=== PATIENT | male | born 1995 | race Caucasian/White ===

== ENCOUNTER 2017-02-06 13:38 | Observation (INO) | payer BC ==
[2017-02-06] MEDS ORDERED: Zofran 4 MG/2 ML VIAL IV ONE ×2 (14:09→15:31)
[2017-02-06] MEDS ORDERED: Hydromorphone 1 mg/ml Ampule IV ONE (14:09)
[2017-02-06] MEDS ORDERED: Sodium Chloride 0.9% 1000 ML 1,000 ML IV SCH (14:15)
[2017-02-06 14:17] LABS: BASOPHIL % 0.1 % (0.0-0.4); Eosinophil % 0.2 % (0.00-5.0); Granulocytes % 86.1 % (36.0-66.0); Lymphocytes % 7.8 % (24.0-44.0); Mean Cell Volume 90.5 fl (78-100); Mean Corpuscular Hemoglobin 30.2 pg (26-32); Mean Platelet Volume 10.4 fl (6-9.5); Monocytes % 5.8 % (0.0-12.0); Platelet Count 276 K/mm3 (150-450); Red Blood Count 4.86 M/mm3 (4.1-5.6); Red Cell Distribution Width 12.9 % (11.5-14.0)
[2017-02-06 14:24] LABS: ALBUMIN 4.1 g/dL (3.4-5.0); ALKALINE PHOSPHATASE 80 U/L (46-116); ANION GAP 12.6 MEQ/L (5-15); BLOOD UREA NITROGEN 16 mg/dL (9-20); CHLORIDE 106 mEq/L (98-107); Carbon Dioxide 26.3 mEq/L (21-32); Glucose 103 MG/DL (70-110); LIPASE 116 U/L (73-393); Potassium 4.4 mEq/L (3.5-5.1); SGOT/AST 17 U/L (15-37); SGPT/ALT 28 U/L (12-78); SODIUM 141 mEq/L (136-145); Total Protein 7.7 gm/dL (6.4-8.2)
[2017-02-06] MEDS ORDERED: Zofran 4 MG/2 ML VIAL ONE (14:31)
[2017-02-06] MEDS ORDERED: Hydromorphone 1 mg/ml Ampule ONE (14:31)
--- NOTE | 2017-02-06 14:32 | ERPHSYRPT ---
- History of Present Illness Time Seen by Provider: 02/06/17 13:48 Historian: patient, family Exam Limitations: no limitations Patient Subjective Stated Complaint: pt co bloating and feeling full since last night, with some nausea Triage Nursing Assessment: pt walked in, alert, no distress, resp easy, skin w/d Physician History: patient developed abdominal pain this morning associated with nausea and vomiting; now has moved to the right lower quadrant; no fever; bowels moving okay; urinating okay; no prior history; loss of appetite Timing/Duration: today, hour(s) (8), gradual onset, worse (now) Activities at Onset: rest Quality: fullness, sharpness Abdominal Pain Onset Location: RLQ Pain Radiation: no radiation Severity of Pain-Max: severe (8/10) Severity of Pain-Current: severe (8/10) Modifying Factors: Improves With: coughing (exacerbates), palpation, vomiting Associated Symptoms: loss of appetite, nausea, vomiting Allergies/Adverse Reactions: No Known Drug Allergies Allergy (Unverified 02/06/17 13:50) Home Medications: No Reportable Medications [No Reported Medications] 02/06/17 [History] Hx Influenza Vaccination/Date Given: No Hx Pneumococcal Vaccination/Date Given: No Immunizations Up to Date: Yes - Review of Systems Constitutional: No Symptoms Eyes: No Symptoms Ears, Nose, & Throat: No Symptoms Respiratory: No Cough, No Dyspnea, No Wheezing Cardiac: No Chest Pain, No Palpitations, No Syncope Abdominal/Gastrointestinal: Abdominal Pain (right lower quadrant), Nausea, Vomiting, Appetite Changes, No Diarrhea, No Constipation Genitourinary Symptoms: No Symptoms Musculoskeletal: No Symptoms Skin: No Symptoms Neurological: No Symptoms Psychological: No Symptoms Endocrine: No Symptoms Hematologic/Lymphatic: No Symptoms Immunological/Allergic: No Symptoms - Past Medical History Pertinent Past Medical History: No - Past Surgical History Past Surgical History: No - Social History Smoking Status: Never smoker Exposure to second hand smoke: No Alcohol Use: Socially Drug Use: none Patient Lives Alone: No Significant Family History: no pertinent family hx - Nursing Vital Signs Nursing Vital Signs: Initial Vital Signs Temperature 97.4 F 02/06/17 13:46 Pulse Rate 60 02/06/17 13:46 Respiratory Rate 16 02/06/17 13:46 Blood Pressure 135/69 02/06/17 13:46 O2 Sat by Pulse Oximetry 100 02/06/17 13:46 Pain Scale Pain Intensity 2 - Physical Exam General Appearance: severe distress (pain and vomiting), alert, obese Eye Exam: PERRL/EOMI, eyes nml inspection, No photophobia Ears, Nose, Throat Exam: normal ENT inspection, TMs normal, pharynx normal, moist mucous membranes Neck Exam: normal inspection, non-tender, supple, full range of motion, No meningismus Respiratory Exam: normal breath sounds, lungs clear, airway intact, No chest tenderness, No respiratory distress Cardiovascular Exam: regular rate/rhythm, normal heart sounds, normal peripheral pulses, capillary refill 2-3 sec, No murmur Gastrointestinal/Abdomen Exam: soft, tenderness (right lower quadrant; left lower quadrant referred to right lower quadrant), guarding, rebound, No normal bowel sounds (present but hypoactive), No hernia, No organomegaly Male Genitalia Exam: normal genitalia Rectal Exam: deferred Back Exam: normal inspection, normal range of motion, No CVA tenderness Extremity Exam: normal inspection, normal range of motion, No alexus's sign, No pedal edema Neurologic Exam: alert, oriented x 3, cooperative, manager nursing II-XII nml as tested, normal mood/affect, nml cerebellar function, nml station & gait Skin Exam: normal color, warm, diaphoresis, No rash, No petechiae SpO2 Interpretation: normal SpO2: 100 Oxygen Delivery: Room Air - Course Nursing assessment & vital signs reviewed: Yes - CT Exams Abdomen/Pelvis CT Interpretation: Discussed w/radiologist, appendicitis Ordered Tests: Active Orders 24 hr Category Date Time Status Bedrest with BRP/BSC ROUTINE Activity 02/06/17 15:07 Ordered Admission/Status Order ROUTINE Care 02/06/17 15:06 Ordered Call Admit Doctor for Orders ON ADMISSION Care 02/06/17 15:07 Ordered Code Status Order ROUTINE Care 02/06/17 15:06 Ordered Fall Protocol ROUTINE Care 02/06/17 15:07 Ordered IV Care Q6H Care 02/06/17 15:06 Ordered IV Insertion STAT Care 02/06/17 14:09 Active NPO (ED) STAT Care 02/06/17 14:09 Active Re-Check Vital Signs STAT Care 02/06/17 14:09 Active Ancelmo Bailey, Apply ROUTINE Care 02/06/17 15:06 Ordered Weight,Daily 0600 Care 02/06/17 15:06 Ordered NPO Diet 02/06/17 15:07 Ordered ABDOMEN AND PELVIS W/0 CONTRAS [CT] Stat Exams 02/06/17 14:09 Completed AMYLASE Stat Lab 02/06/17 13:56 Completed CBC W DIFF Stat Lab 02/06/17 13:56 Completed CMP Stat Lab 02/06/17 13:56 Completed LIPASE Stat Lab 02/06/17 13:56 Completed UA W/RFX UR CULTURE Stat Lab 02/06/17 14:09 Ordered Transfer Order Routine Transfer 02/06/17 Ordered Medication Summary Generic Name Dose Route Start Last Admin Trade Name Freq PRN Reason Stop Dose Admin Sodium Chloride 1,000 mls @ 100 mls/hr 02/06/17 14:15 02/06/17 14:35 Sodium Chloride 0.9% 1000 Ml IV 03/08/17 14:14 100 mls/hr .Q10H CJ Administration Cefoxitin Sodium 1 g in 50 mls @ 100 mls/hr 02/06/17 15:04 Mefoxin 1 Gm/ D5w 50 Ml IV 02/06/17 15:33 STAT STA Discontinued Medications Generic Name Dose Route Start Last Admin Trade Name Freq PRN Reason Stop Dose Admin Hydromorphone HCl 2 mg 02/06/17 14:09 02/06/17 14:36 Hydromorphone 1 Mg/Ml Ampule IV 02/06/17 14:10 2 mg STAT ONE Administration Hydromorphone HCl Confirm 02/06/17 14:31 Hydromorphone 1 Mg/Ml Ampule Administered 02/06/17 14:32 Dose 2 mg .ROUTE .STK-MED ONE Ondansetron HCl 4 mg 02/06/17 14:09 02/06/17 14:36 Zofran 4 Mg/2 Ml Vial IV 02/06/17 14:10 4 mg STAT ONE Administration Ondansetron HCl Confirm 02/06/17 14:31 Zofran 4 Mg/2 Ml Vial Administered 02/06/17 14:32 Dose 4 mg .ROUTE .STK-MED ONE Lab/Rad Data: Laboratory Result Diagrams 02/06/17 13:56 02/06/17 13:56 Laboratory Results 02/06/17 02/06/17 Range/Units 13:56 13:56 WBC 14.0 H (4.0-10.5) K/mm3 RBC 4.86 (4.1-5.6) M/mm3 Hgb 14.7 (12.5-18.0) gm/dl Hct 44.0 (42-50) % MCV 90.5 (78-100) fl MCH 30.2 (26-32) pg MCHC 33.4 (32-36) g/dl RDW 12.9 (11.5-14.0) % Plt Count 276 (150-450) K/mm3 MPV 10.4 H (6-9.5) fl Gran % 86.1 H (36.0-66.0) % Lymphocytes % 7.8 L (24.0-44.0) % Monocytes % 5.8 (0.0-12.0) % Eosinophils % 0.2 (0.00-5.0) % Basophils % 0.1 (0.0-0.4) % Basophils # 0.02 (0-0.4) Sodium 141 (136-145) mEq/L Potassium 4.4 (3.5-5.1) mEq/L Chloride 106 (98-107) mEq/L Carbon Dioxide 26.3 (21-32) mEq/L Anion Gap 12.6 (5-15) MEQ/L BUN 16 (9-20) mg/dL Creatinine 1.11 (0.55-1.30) mg/dl Estimated GFR > 60 ML/MIN Glucose 103 (70-110) MG/DL Calcium 9.1 (8.5-10.1) mg/dL Total Bilirubin 0.40 (0.2-1.0) mg/dL AST 17 (15-37) U/L ALT 28 (12-78) U/L Alkaline Phosphatase 80 (46-116) U/L Serum Total Protein 7.7 (6.4-8.2) gm/dL Albumin 4.1 (3.4-5.0) g/dL Amylase 35 (25-115) U/L Lipase 116 (73-393) U/L reviewed - Progress Progress: improved (after meds), re-examined (after medications) Progress Note: 02/06/17 14:31 discussed treatment plan; significant other at bedside; started IV and made nothing by mouth; gave medication for pain and nausea; labs and CT of abdomen pending; will recheck 02/06/17 14:[id number] - result pending; CBC suspicious for Appendicitis; renal function and lytes and carmelo and lip all ok; will monitor and recheck 02/06/17 15:03 CT positive for appendicitis; Dr Crowley consulted and will operate, patient notified; will give ATBS and NPO; good releif of N&V and pain with meds 02/06/17 15:08 orders written and patient sent to the floor pre op Discussed with : Polo (consulted and will take to surgery) Will see patient in: hospital (observation) Counseled pt/family regarding: lab results, diagnosis, need for follow-up, rad results - Departure Time of Disposition: 15:04 Departure Disposition: Observation Clinical Impression: Acute appendicitis Condition: Stable Critical Care Time: No Referrals: TO [facility] [Primary Care Provider] - Instructions: Abdominal Pain-Adult
--- NOTE | 2017-02-06 14:54 | XRAY ---
Exam: CT of the abdomen and pelvis without IV contrast 02/06/2017. CTDI: 21.58 Comparison: None. Indication: Right lower quadrant abdominal pain with nausea/vomiting Technique: Non-IV contrast axial images were obtained through the abdomen and pelvis. Reconstructed coronal and sagittal images were created and reviewed. Findings: The lung bases appear clear. The transverse heart size is normal. Evaluation of the solid organs is limited without the use of IV contrast. However, I see no significant focal abnormality of the liver, spleen, or pancreas. The gallbladder is distended and reveals no dense calcifications within it. A few tiny splenic calcified granulomas are seen. The adrenal glands appear of normal size and configuration. The kidneys are of normal size. No hydronephrosis or renal calculi are seen. No definite renal mass is seen. There is no free intraperitoneal air. The abdominal aorta is of normal diameter. No abnormal retroperitoneal lymphadenopathy is seen. The appendix appears dilated measuring up to 1.1 cm in diameter. It contains several high attenuation densities which may relate to appendicoliths. I believe there is also some appendiceal wall thickening and mild adjacent periappendiceal inflammatory change. The findings are consistent with acute appendicitis. I see no evidence of perforation or abscess. The pelvis reveals no abnormal pelvic lymph nodes or free fluid. The urinary bladder is partially distended and appears unremarkable. The seminal vesicles and prostate gland appear normal. No significant abnormality of the sigmoid colon is seen. Some small nonspecific postinflammatory lymph nodes are seen within each groin. The skeleton reveals no acute fracture or suspicious bone lesions. Impression: 1. Findings consistent with acute appendicitis. I personally called the emergency Department physician, Dr. Palmer, at 2:38 PM on 02/06/2017 2. The remainder of the CT of the abdomen and pelvis reveals no significant abnormality.
[2017-02-06] MEDS ORDERED: DILAUDID 2 MG INJECTION IV PRN (15:06)
[2017-02-06] MEDS ORDERED: Zofran 4 MG/2 ML VIAL IV PRN (15:06)
[2017-02-06] MEDS ORDERED: MEFOXIN 2 GM PREMIX** 2 GM/50 ML ML IV ONE (15:20)
[2017-02-06] MEDS ORDERED: Decadron 4 MG INJ IV ONE (15:31)
[2017-02-06] MEDS ORDERED: DIPRIVAN 200 MG/20 ML IV ONE (15:31)
[2017-02-06] MEDS ORDERED: BRIDION 200MG/2ML IV ONE (15:31)
[2017-02-06] MEDS ORDERED: Quelicin Fliptop 200 MG/10 ML IV ONE (15:31)
[2017-02-06] MEDS ORDERED: SUBLIMAZE 100 MCG/2 ML IV ONE (15:31)
[2017-02-06] MEDS ORDERED: TORAdol 30 mg Injection IV ONE (15:31)
[2017-02-06] MEDS ORDERED: Zemuron 100 MG/10 ML IV ONE (15:31)
[2017-02-06] MEDS ORDERED: Lactated Ringers 1,000 ML IV ONE ×2 (15:37→15:43)
[2017-02-06] MEDS ORDERED: Sensorcaine 0.25% 10 ML ONE (15:43)
[2017-02-06 16:12] LABS: Bilirubin NEGATIVE (NEGATIVE); COMPLETE URINE MICROSCOPIC? YES; Collection Type CATH; Glucose NEGATIVE (NEGATIVE); Leukocyte Esterase TRACE (NEGATIVE)
[2017-02-06 16:13] LABS: ADD URINE CULTURE? YES (NO); Bacteria RARE /HPF (NEGATIVE)
[2017-02-06] MEDS ORDERED: Lactated Ringers 1,000 ML IV SCH (17:00)
[2017-02-06] MEDS ORDERED: MORPHINE SULFATE 4 MG INJ IV PRN (18:31)
[2017-02-06] MEDS ORDERED: MORPHINE SULFATE 2 MG INJ IV PRN (18:31)
[2017-02-06] MEDS ORDERED: NORCO 5/325 MG PO PRN (18:38)
[2017-02-06] MEDS ORDERED: Zofran 4 MG/2 ML VIAL IVIM PRN (18:38)
[2017-02-06] MEDS ORDERED: TYLENOL 325 MG PO PRN (18:38)
[2017-02-06] MEDS: D5W/0.45NS W/ 20mEq KCl 1000 ML 1,000 ML IV SCH (22:28)
[2017-02-06] MEDS: MEFOXIN 1 Gm/ D5W 50 Ml** 1 G/50 ML ML IV SCH (22:28)
[2017-02-06] MEDS: MEFOXIN 1 Gm/ D5W 50 Ml** 1 G/50 ML ML IV STA (22:28)
[2017-02-07] MEDS: MEFOXIN 1 Gm/ D5W 50 Ml** 1 G/50 ML ML IV SCH (05:52)
[2017-02-07 06:19] LABS: Mean Cell Volume 90.8 fl (78-100); Mean Corpuscular Hemoglobin 30.3 pg (26-32); Mean Platelet Volume 10.6 fl (6-9.5); Platelet Count 259 K/mm3 (150-450); Red Blood Count 4.58 M/mm3 (4.1-5.6); Red Cell Distribution Width 12.8 % (11.5-14.0); White Blood Count 15.9 K/mm3 (4.0-10.5)
[2017-02-07] MEDS ORDERED: FEVERALL 650 MG RC PRN (06:19)
[2017-02-07] MEDS ORDERED: ENOXAPARIN SODIUM SQ SCH (10:00)
[2017-02-07] MEDS: MEFOXIN 1 Gm/ D5W 50 Ml** 1 G/50 ML ML IV STA (10:22)
--- NOTE | 2017-02-07 10:57 | OP ---
SURGERY DATE/TIME: 02/06/2017 1642 PREOPERATIVE DIAGNOSIS: Acute appendicitis. POSTOPERATIVE DIAGNOSIS: Acute appendicitis. PROCEDURE: Laparoscopic appendectomy. SURGEON: Dimas Crowley M.D. ANESTHESIA: General endotracheal tube. COMPLICATIONS: None. CONDITION: Stable. INDICATION: A patient with acute appendicitis. DESCRIPTION OF PROCEDURE: He was taken to surgery. General anesthetic. Routine prep and drape. Veress needle inserted transumbilical. Insufflating pressure 14. A 12 port introduced. Good visualization. Acute appendicitis nonruptured. There was 4 ounces of clear fluid in the right pelvis that was irrigated and suctioned dry. Mesoappendix taken with 2.5 vascular cartridge. Base taken with 2.5 vascular cartridge. It was well approximated. It was placed in a condom bag and removed. There was no violation. The field was dry. It was irrigated. The right gutter was suctioned dry. 12 port closed with a hole closure device with 0 Vicryl. Skin closed with 4-0 Vicryl and Steri-Strips. The patient tolerated the procedure satisfactorily.
[2017-02-07 11:22] VITALS: BP 116/57; PULSE 77
[2017-02-07] MEDS: D5W/0.45NS W/ 20mEq KCl 1000 ML 1,000 ML IV SCH (12:12)
[2017-02-07 13:55] VITALS: O2SAT 99
== END 2017-02-07 16:30 | disposition home or self-care (01) ==
LOC: ED 13:38 → MED SURG 15:30
PROVIDERS: ADMIT Surgery; ATTEND Surgery
PROC: 0DTJ4ZZ Resection of Appendix, Percutaneous Endoscopic Approach (ICD-10-PCS; principal; 2017-02-06)
DX: K35.80 Unspecified acute appendicitis (principal)
CPT/HCPCS: 00840; 36000; 36415; 74176; 80053; 81000; 82150; 83690; 85025; 85027; 87086; 94760; 96360; 96374; 96375; 99140; 99285; G0378; J0330; J0694; J1100; J1170; J1650; J1885; J2405; J2704; J3010; A9270-GY